=== PATIENT | male | born 1965 | race African-American/Black ===

== ENCOUNTER 2018-01-11 12:56 | Inpatient (IN) | payer SELFPAY ==
[~2018-01-11] VITALS: Ht 180.3 cm; Wt 92.5 kg
[2018-01-11 13:19] VITALS: BP 113/93
[2018-01-11 13:39] LABS: BASOPHILS % (AUTO) 1.2 % (0.0-2.0); EOSINOPHILS % (AUTO) 1.3 % (0.0-3.0); HEMATOCRIT 48.4 % (42.0-52.0); HEMOGLOBIN 16.1 G/DL (14.2-18.0); LYMPHOCYTES % (AUTO) 45.3 % (20.0-45.0); MEAN CORPUSCULAR VOLUME 93 FL (80-99); MONOCYTES % (AUTO) 8.1 % (1.0-10.0); NEUTROPHILS % (AUTO) 44.1 % (45.0-75.0); PLATELET COUNT 204 K/UL (150-450); RED BLOOD COUNT 5.19 M/UL (4.70-6.10); RED CELL DISTRIBUTION WIDTH 11.3 % (11.6-14.8); WHITE BLOOD COUNT 5.8 K/UL (4.8-10.8)
[2018-01-11 13:54] LABS: ANION GAP 8 mmol/L (5-15); BLOOD UREA NITROGEN 14 mg/dL (7-18); CALCIUM 9.1 MG/DL (8.5-10.1); CARBON DIOXIDE 29 MMOL/L (21-32); CHLORIDE 103 MMOL/L (98-107); CREATININE 1.2 MG/DL (0.55-1.30); POTASSIUM 3.7 MMOL/L (3.5-5.1); SODIUM 140 MMOL/L (136-145)
[2018-01-11 14:08] LABS: ALANINE AMINOTRANSFERASE 21 U/L (12-78); ALBUMIN 3.9 G/DL (3.4-5.0); ALKALINE PHOSPHATASE 67 U/L (46-116); ASPARTATE AMINO TRANSFERASE 17 U/L (15-37); BILIRUBIN,TOTAL 0.4 MG/DL (0.2-1.0); CKMB 0.8 NG/ML (0.0-3.6); CREATINE KINASE 146 U/L (26-308)
[2018-01-11] MEDS ORDERED: Isovue-370 150ml vial INJ PRN (14:30)
--- NOTE | 2018-01-11 15:18 | Emergency Room Report ---
History of Present Illness General Chief Complaint: Chest Pain Source: Patient (Rosalva Ren DO) Present Illness HPI This patient states that he developed chest pain at 5:30 AM this morning. He states the pain was sudden in onset and worse with deep inspiration. He denies trauma. He denies nausea or vomiting. He denies fever or chills. He denies recent illness. He has no other complaints. (Rosalva Ren DO) Allergies: Coded Allergies: No Known Allergies (Unverified , 11/30/12) Patient History Past Medical History: none Social History: Denies: smoking, alcohol use, drug use Reviewed Nursing Documentation: PMH: Agreed; PSxH: Agreed (Rosalva Ren DO) Nursing Documentation-PMH Past Medical History: No Stated History (Rosalva Ren DO) Review of Systems All Other Systems: negative except mentioned in HPI (Rosalva Ren DO) Physical Exam Vital Signs Date Time Temp Pulse Resp B/P (MAP) Pulse Ox O2 Delivery O2 Flow Rate FiO2 01/11/18 13:09 98.7 63 20 153/100 97 Room Air 98.8 Sp02 EP Interpretation: reviewed, normal General Appearance: no apparent distress, alert, GCS 15, non-toxic Head: normocephalic, atraumatic Eyes: bilateral eye normal inspection, bilateral eye PERRL ENT: hearing grossly normal, normal pharynx, no angioedema, normal voice Neck: full range of motion, supple/symm/no masses Respiratory: lungs clear, normal breath sounds, no respiratory distress, no retraction, no accessory muscle use, speaking full sentences, other - Chest wall ttp on palpation. Cardiovascular #1: regular rate, rhythm, no edema Gastrointestinal: normal bowel sounds, non tender, soft, non-distended, no guarding, no rebound Rectal: deferred Musculoskeletal: back normal, gait/station normal, normal range of motion, non- tender, calf tenderness Neurologic: alert, oriented x3, responsive, motor strength/tone normal, sensory intact, speech normal Psychiatric: judgement/insight normal, memory normal, mood/affect normal, no suicidal/homicidal ideation Skin: normal color, no rash, warm/dry, well hydrated (Rosalva Ren DO) Medical Decision Making Diagnostic Impression: Primary Impression: Chest pain Additional Impression: ACS (acute coronary syndrome) ER Course This patient presented with chest pain and it was pleuritic in nature. Initial workup to include EKG, chest x-ray and cardiac enzymes were unremarkable. The patient has had stuttering chest pain throughout the day that is worse with deep inspiration. I felt that I should rule out PE in this patient. The patient is pending a CTA of the chest at this time. Anticipate admission for cardiology evaluation. CT to be followed up by Dr. Em. Final disposition per Dr. Em. Laboratory Tests Test 01/11/18 13:08 01/11/18 13:26 Urine Opiates Screen Negative (NEGATIVE) Urine Barbiturates Screen Negative (NEGATIVE) Phencyclidine (PCP) Screen Negative (NEGATIVE) Urine Amphetamines Screen Negative (NEGATIVE) Urine Benzodiazepines Screen Negative (NEGATIVE) Urine Cocaine Screen Negative (NEGATIVE) Urine Marijuana (THC) Screen Negative (NEGATIVE) White Blood Count 5.8 K/UL (4.8-10.8) Red Blood Count 5.19 M/UL (4.70-6.10) Hemoglobin 16.1 G/DL (14.2-18.0) Hematocrit 48.4 % (42.0-52.0) Mean Corpuscular Volume 93 FL (80-99) Mean Corpuscular Hemoglobin 31.0 PG (27.0-31.0) Mean Corpuscular Hemoglobin Concent 33.3 G/DL (32.0-36.0) Red Cell Distribution Width 11.3 % (11.6-14.8) L Platelet Count 204 K/UL (150-450) Mean Platelet Volume 7.7 FL (6.5-10.1) Neutrophils (%) (Auto) 44.1 % (45.0-75.0) L Lymphocytes (%) (Auto) 45.3 % (20.0-45.0) H Monocytes (%) (Auto) 8.1 % (1.0-10.0) Eosinophils (%) (Auto) 1.3 % (0.0-3.0) Basophils (%) (Auto) 1.2 % (0.0-2.0) Sodium Level 140 MMOL/L (136-145) Potassium Level 3.7 MMOL/L (3.5-5.1) Chloride Level 103 MMOL/L (98-107) Carbon Dioxide Level 29 MMOL/L (21-32) Anion Gap 8 mmol/L (5-15) Blood Urea Nitrogen 14 mg/dL (7-18) Creatinine 1.2 MG/DL (0.55-1.30) Estimate Glomerular Filtration Rate > 60 mL/min (>60) Glucose Level 130 MG/DL (74-106) H Calcium Level 9.1 MG/DL (8.5-10.1) Total Bilirubin 0.4 MG/DL (0.2-1.0) Aspartate Amino Transferase (AST) 17 U/L (15-37) Alanine Aminotransferase (ALT) 21 U/L (12-78) Alkaline Phosphatase 67 U/L (46-116) Total Creatine Kinase 146 U/L (26-308) Creatine Kinase MB 0.8 NG/ML (0.0-3.6) Creatine Kinase MB Relative Index 0.5 Troponin I 0.011 ng/mL (0.000-0.056) Total Protein 7.8 G/DL (6.4-8.2) Albumin 3.9 G/DL (3.4-5.0) Globulin 3.9 g/dL Albumin/Globulin Ratio 1.0 (1.0-2.7) (Rosalva Ren DO) ER Course Patient presented to the emergency department today complaining of chest pain. Differential diagnoses include acute coronary syndrome, pulmonary embolism, pneumothorax, chest wall pain, pleurisy, pericarditis, acute anxiety reaction just to name a few. Given the severity of the patient's presentation I felt this is a highly complex patient. This patient required extensive workup. CBC , chemistry, EKG, chest x-ray, cardiac enzymes, liver profile were all obtained. 12-lead EKG performed for nontraumatic chest pain. PQRS documentation: EKG was performed. Please refer to below for interpretation. Patient's EKG was nonspecific but had inverted T waves. Patient's cardiac enzymes are negative. Patient was initially seen by Dr. Ren and signed out to me for final disposition. Given patient's risk factors felt the patient require admission. Case was discussed with Dr. Timo Peters for admission. Labs Test 01/11/18 13:08 01/11/18 13:26 Urine Opiates Screen Negative (NEGATIVE) Urine Barbiturates Screen Negative (NEGATIVE) Phencyclidine (PCP) Screen Negative (NEGATIVE) Urine Amphetamines Screen Negative (NEGATIVE) Urine Benzodiazepines Screen Negative (NEGATIVE) Urine Cocaine Screen Negative (NEGATIVE) Urine Marijuana (THC) Screen Negative (NEGATIVE) White Blood Count 5.8 K/UL (4.8-10.8) Red Blood Count 5.19 M/UL (4.70-6.10) Hemoglobin 16.1 G/DL (14.2-18.0) Hematocrit 48.4 % (42.0-52.0) Mean Corpuscular Volume 93 FL (80-99) Mean Corpuscular Hemoglobin 31.0 PG (27.0-31.0) Mean Corpuscular Hemoglobin Concent 33.3 G/DL (32.0-36.0) Red Cell Distribution Width 11.3 % (11.6-14.8) Platelet Count 204 K/UL (150-450) Mean Platelet Volume 7.7 FL (6.5-10.1) Neutrophils (%) (Auto) 44.1 % (45.0-75.0) Lymphocytes (%) (Auto) 45.3 % (20.0-45.0) Monocytes (%) (Auto) 8.1 % (1.0-10.0) Eosinophils (%) (Auto) 1.3 % (0.0-3.0) Basophils (%) (Auto) 1.2 % (0.0-2.0) Sodium Level 140 MMOL/L (136-145) Potassium Level 3.7 MMOL/L (3.5-5.1) Chloride Level 103 MMOL/L (98-107) Carbon Dioxide Level 29 MMOL/L (21-32) Anion Gap 8 mmol/L (5-15) Blood Urea Nitrogen 14 mg/dL (7-18) Creatinine 1.2 MG/DL (0.55-1.30) Estimat Glomerular Filtration Rate > 60 mL/min (>60) Glucose Level 130 MG/DL (74-106) Calcium Level 9.1 MG/DL (8.5-10.1) Total Bilirubin 0.4 MG/DL (0.2-1.0) Aspartate Amino Transf (AST/SGOT) 17 U/L (15-37) Alanine Aminotransferase (ALT/SGPT) 21 U/L (12-78) Alkaline Phosphatase 67 U/L (46-116) Total Creatine Kinase 146 U/L (26-308) Creatine Kinase MB 0.8 NG/ML (0.0-3.6) Creatine Kinase MB Relative Index 0.5 Troponin I 0.011 ng/mL (0.000-0.056) Total Protein 7.8 G/DL (6.4-8.2) Albumin 3.9 G/DL (3.4-5.0) Globulin 3.9 g/dL Albumin/Globulin Ratio 1.0 (1.0-2.7) (Anival Em MD) EKG Diagnostic Results Rate: normal Rhythm: NSR ST Segments: other - NSST ([facility]) Rate: normal Rhythm: NSR ST Segments: other - Inverted T waves inferior laterally (Anival Em MD) Rhythm Strip Diag. Results EP Interpretation: yes Rate: 50's Rhythm: other - [facility]ritz [facility] EP Interpretation: yes Rate: 80s Rhythm: NSR, no PVC's, no ectopy (Anival Em MD) Chest X-Ray Diagnostic Results Chest X-Ray Diagnostic Results : Chest X-Ray Ordered: Yes # of Views/Limited/Complete: 1 View Indication: Chest Pain Interpretation: no consolidation, no effusion, no pneumothorax, no acute cardiopulmonary disease Impression: No acute disease Electronically Signed by: Jennifer ([facility]) CT/MRI/US Diagnostic Results CT/MRI/US Diagnostic Results : Imaging Test Ordered: [facility] chest Impression [facility]ending [facility] CT[facility]/US Diagnostic Results : Imaging Test Ordered: CT chest: Negative per radiology (Anival Em MD) Last Vital Signs Date Time Temp Pulse Resp B/P (MAP) Pulse Ox O2 Delivery O2 Flow Rate FiO2 01/11/18 13:22 65 19 Room Air 01/11/18 13:19 98.2 113/93 100 98.2 ([facility]) Disposition: ADMITTED INPATIENT Condition: Serious Referrals: NOT CHOSEN IPA/,REFERRING [facility] 11, [facility] 15:18 Anival Em MD Jan 11, 2018 16:09
--- NOTE | 2018-01-11 16:02 | Diagnostic Imaging Report ---
ndication: Left-sided chest pain Technique: IV administration nonionic contrast. Spiral acquisitions obtained from the lung bases to the lung apices. Multiplanar and 3-D reconstructions were generated. Total dose length product 865.65 mGycm. CTDIvol(s) 21.41 mGy. Dose reduction achieved using automated exposure control Comparison: none Findings: There is good quality opacification of the pulmonary arteries. No intraluminal filling defects or other findings to suggest acute pulmonary embolus are demonstrated. Normal caliber pulmonary arteries. No evidence of right ventricular dilatation. The heart is borderline enlarged. The ascending thoracic aorta is mildly ectatic, measuring 3.8 cm diameter, but not frankly aneurysmal. Normal branching anatomy and normal caliber of the great neck vessels. The lungs demonstrate peripheral mild centrilobular interstitial septal thickening bilaterally. No focal airspace consolidation. No masses or nodules. No effusions. No pericardial effusion. No mediastinal or hilar mass or adenopathy. The included portions of the thyroid appear unremarkable. No axillary or chest wall mass or adenopathy demonstrated. The included upper abdominal viscera demonstrate a small cyst in the upper pole of the left kidney. There is a superior endplate compression fracture deformity of the T11 vertebral body. There are suggestive slight endplate superior depressions of the T3, T4, and T8 vertebral bodies. Impression: Negative for evidence of acute pulmonary embolus or other acute thoracic pathology Peripheral centrilobular mild interstitial septal thickening, nonspecific finding with a broad differential, likely chronic T11 superior endplate vertebral body compression fracture deformity. Questionable slight superior endplate compression fractures of T3, T4, T8. All age indeterminate. Consider MRI for better examination if clinically relevant Incidental finding small left upper pole renal cyst The CT scanner at [facility] is accredited by the [employer] and the scans are performed using protocols designed to limit radiation exposure to as low as reasonably achievable to attain images of sufficient resolution adequate for diagnostic evaluation.
--- NOTE | 2018-01-11 16:49 | Diagnostic Imaging Report ---
Indication: Chest pain Technique: One view of the chest Comparison: 11/30/2012 Findings: Suboptimal inspiration. The heart is enlarged. The aorta is tortuous. Upper mediastinum is unremarkable Impression: No acute process
[2018-01-11 16:50] VITALS: BP 115/68
[2018-01-11] MEDS ORDERED: NKM (17:02)
[2018-01-11 20:00] VITALS: BP 156/100
[2018-01-12] VITALS: BP 140/87
[2018-01-12 04:00] VITALS: BP 142/85
[2018-01-12 05:50] LABS: CHOLESTEROL 168 MG/DL (< 200); HDL CHOLESTEROL 69 MG/DL (40-60); TRIGLYCERIDES 67 MG/DL (30-150)
[2018-01-12 08:00] VITALS: BP 140/98
--- NOTE | 2018-01-12 08:02 | Cardiology Progress Note ---
Assessment/Plan Assessment/Plan The patient is seen and examined, full consult report will be dictated shortly. Objective Last 24 Hour Vital Signs Date Time Temp Pulse Resp B/P (MAP) Pulse Ox O2 Delivery O2 Flow Rate FiO2 01/12/18 04:00 56 01/12/18 04:00 98.1 56 17 142/85 (104) 96 98.1 01/12/18 00:00 54 01/12/18 00:00 98.1 54 17 140/87 (104) 96 98.1 01/11/18 21:00 Room Air 01/11/18 20:00 59 01/11/18 20:00 98.3 65 16 156/100 (118) 96 98.3 01/11/18 18:03 Room Air 01/11/18 17:20 98.2 63 19 115/68 100 Room Air 98.2 01/11/18 16:50 98.2 63 19 115/68 100 Room Air 98.2 01/11/18 13:22 65 19 Room Air 01/11/18 13:19 98.2 63 17 113/93 100 Room Air 98.2 01/11/18 13:09 98.7 63 20 153/100 97 Room Air 98.8 Intake and Output 01/11/18 01/12/18 19:00 07:00 Intake Total 360 ml Balance 360 ml Intake Oral 360 ml # Voids 1 1 # Bowel Movements 1 Laboratory Tests Test 01/11/18 13:08 01/11/18 13:26 01/11/18 23:10 01/12/18 04:00 Urine Opiates Screen Negative (NEGATIVE) Urine Barbiturates Screen Negative (NEGATIVE) Phencyclidine (PCP) Screen Negative (NEGATIVE) Urine Amphetamines Screen Negative (NEGATIVE) Urine Benzodiazepines Screen Negative (NEGATIVE) Urine Cocaine Screen Negative (NEGATIVE) Urine Marijuana (THC) Screen Negative (NEGATIVE) White Blood Count 5.8 K/UL (4.8-10.8) Red Blood Count 5.19 M/UL (4.70-6.10) Hemoglobin 16.1 G/DL (14.2-18.0) Hematocrit 48.4 % (42.0-52.0) Mean Corpuscular Volume 93 FL (80-99) Mean Corpuscular Hemoglobin 31.0 PG (27.0-31.0) Mean Corpuscular Hemoglobin Concent 33.3 G/DL (32.0-36.0) Red Cell Distribution Width 11.3 % (11.6-14.8) L Platelet Count 204 K/UL (150-450) Mean Platelet Volume 7.7 FL (6.5-10.1) Neutrophils (%) (Auto) 44.1 % (45.0-75.0) L Lymphocytes (%) (Auto) 45.3 % (20.0-45.0) H Monocytes (%) (Auto) 8.1 % (1.0-10.0) Eosinophils (%) (Auto) 1.3 % (0.0-3.0) Basophils (%) (Auto) 1.2 % (0.0-2.0) Sodium Level 140 MMOL/L (136-145) Potassium Level 3.7 MMOL/L (3.5-5.1) Chloride Level 103 MMOL/L (98-107) Carbon Dioxide Level 29 MMOL/L (21-32) Anion Gap 8 mmol/L (5-15) Blood Urea Nitrogen 14 mg/dL (7-18) Creatinine 1.2 MG/DL (0.55-1.30) Estimat Glomerular Filtration Rate > 60 mL/min (>60) Glucose Level 130 MG/DL (74-106) H Calcium Level 9.1 MG/DL (8.5-10.1) Total Bilirubin 0.4 MG/DL (0.2-1.0) Aspartate Amino Transf (AST/SGOT) 17 U/L (15-37) Alanine Aminotransferase (ALT/SGPT) 21 U/L (12-78) Alkaline Phosphatase 67 U/L (46-116) Total Creatine Kinase 146 U/L (26-308) Creatine Kinase MB 0.8 NG/ML (0.0-3.6) Creatine Kinase MB Relative Index 0.5 Troponin I 0.011 ng/mL (0.000-0.056) 0.002 ng/mL (0.000-0.056) Total Protein 7.8 G/DL (6.4-8.2) Albumin 3.9 G/DL (3.4-5.0) Globulin 3.9 g/dL Albumin/Globulin Ratio 1.0 (1.0-2.7) Triglycerides Level 67 MG/DL (30-150) Cholesterol Level 168 MG/DL (< 200) LDL Cholesterol 89 mg/dL (<100) HDL Cholesterol 69 MG/DL (40-60) H Cholesterol/HDL Ratio 2.4 (3.3-4.4) L Marquise Christian MD Jan 12, 2018 08:02
[2018-01-12] MEDS: Aspirin Baby 81mg ORAL SCH (08:15)
[2018-01-12 12:00] VITALS: BP 136/91
[2018-01-12 16:00] VITALS: BP 138/68
[2018-01-12 20:00] VITALS: BP 157/105
[2018-01-13] VITALS: BP 146/94
[2018-01-13 04:00] VITALS: BP 141/94
[2018-01-13 08:00] VITALS: BP 139/96
[2018-01-13] MEDS: Aspirin Baby 81mg ORAL SCH (08:22)
--- NOTE | 2018-01-13 13:30 | History and Physical Report ---
DATE OF ADMISSION: 01/11/2018 NOTE: Poor Audio/Multiple Blanks HISTORY OF PRESENT ILLNESS: The patient admitted for chest pain, to rule out acute coronary syndrome. The patient states that he has been having chest pain for one day, made worse by deep inspiration and laughing, although, has a history of drug abuse in the past. Denies nausea, vomiting, or diarrhea. No palpitations. No shortness of breath. Denies cough. Denies fever or chills. Denies orthopnea. PAST MEDICAL HISTORY: None. PAST SURGICAL HISTORY: None. MEDICATIONS: None. FAMILY HISTORY: Noncontributory. SOCIAL HISTORY: history of alcohol abuse. Denies history of smoking. Does have a history of drug abuse in the past. REVIEW OF SYSTEMS: HEENT: Denies headaches. PULMONARY: Denies shortness of breath. Denies cough. CARDIOVASCULAR: . Does have chest pain for one day. No radiation. Admitted for further infection deep inspiration. GASTROINTESTINAL: No nausea, vomiting, or diarrhea. Denies heartburn. EXTREMITIES: No pain in the lower extremities. NEUROLOGIC: No change in vision or speech pattern. PHYSICAL EXAMINATION: VITAL SIGNS: Temperature 98.1, pulse is 54, blood pressure . HEENT: PERRLA. NECK: Supple. CHEST: Clear to auscultation. CARDIOVASCULAR: Regular rate and rhythm. GASTROINTESTINAL: Soft, nontender, and nondistended. No organomegaly. EXTREMITIES: No edema. Able to move all extremities. LABORATORY DATA: Troponins negative. EKG, no significant changes. Laboratory barragan, 5.8 WBC, 16.1 hemoglobin, platelets 204. Sodium 140, potassium 3.7, BUN of 14, creatinine 1.2, and glucose of 130. Troponin 0.011. ASSESSMENT/PLAN: Chest pain, rule out acute coronary syndrome. I have asked Dr. Christian and Dr. Majano to see the patient to rule out acute coronary syndrome and also for borderline potassium. Timo Hadley M.D. DR: ELZBIETA/SULMA JOB#: [id number] CC:
--- NOTE | 2018-01-13 17:00 | Consultation ---
DATE OF CONSULTATION: 01/12/2018 CARDIOLOGY CONSULTATION CONSULTING PHYSICIAN: Marquise Christian M.D. REFERRING PHYSICIAN: Timo Hadley M.D. REASON FOR CONSULTATION: Management of chest pain. HISTORY OF PRESENT ILLNESS: The patient is a very unfortunate 52-year-old gentleman, who presented to the hospital on 01/11/2018 after developing chest pain at 5:30 a.m. Chest pain is described as sudden onset, pleuritic, and no alleviating factors. He does not take any medication. He does not have any history of coronary artery disease, congestive heart failure, or cardiac arrhythmia. The pain was not associated with any shortness of breath, nausea, vomiting, or diaphoresis. At the time of arrival to the hospital, blood pressure was 153/100 mmHg and pulse of 63. Acute myocardial infarction was ruled out by two indicative troponin I levels. PAST MEDICAL HISTORY: None. MEDICATION: None. ALLERGIES: No known drug allergies. SOCIAL HISTORY: Denies any tobacco, alcohol, or illicit drug use. FAMILY HISTORY: None. REVIEW OF SYSTEMS: A 12-system review done is essentially negative except what is mentioned in the history of present illness. PHYSICAL EXAMINATION: VITAL SIGNS: Blood pressure 153/100, pulse of 63, respirations 20, and O2 saturation 98% on room air. GENERAL: The patient is a very pleasant 52-year-old gentleman, in no apparent respiratory distress. Alert and orient x4. HEENT: Atraumatic and normocephalic. Anicteric. Pupils are equal, round, and reactive to light and accommodation. Extraocular muscles intact. NECK: JVP less than 5 cm. No carotid bruit. Carotid upstrokes 2+ bilaterally. CVS: Normal S1, S2. Regular rate and rhythm. No murmurs, gallops, or rubs. PMI is at fourth intercostal space at the midclavicular line. LUNGS: Clear to auscultation bilaterally. ABDOMEN: Soft, nontender, and nondistended. No hepatosplenomegaly. Positive bowel sounds. EXTREMITIES: No evidence of edema, clubbing, or cyanosis. LABORATORY FINDINGS: Urine tox screen was negative. Chemistry shows sodium 140, potassium 3.7, chloride 103, bicarbonate 29, BUN of 14, and creatinine 1.2. Glucose 130. Calcium is 9.1. Troponin I x2 negative. LDL is 89, HDL is 69, total cholesterol 168, and triglycerides is 67. CBC shows WBC of 5.8, hemoglobin is 16.1, hematocrit of 48.4, and platelet count is 204,000. Chest x-ray showed no acute cardiopulmonary disease. CTA of chest showed no evidence of pulmonary embolism. ASSESSMENT AND PLAN: The patient is a very unfortunate 52-year-old gentleman, who presented to the hospital with atypical chest pain. No risk factors for coronary artery disease except age and hypertension for which he presented to the hospital and might be new onset. The patient will benefit from a treadmill and stress test to rule out obstructive CAD before the pending discharge. I would like to thank, , for the courtesy of this consultation. Marquise Christian M.D. DR: FRANCISCO J JOB#: [id number] CC:
--- NOTE | 2018-01-14 08:18 | Discharge Summary ---
Discharge Summary Discharge Summary _ DATE OF ADMISSION: 01/11/2018 DATE OF DISCHARGE: 01/13/2018 CONSULTANTS: Dr. Marquise Christian BRIEF HOSPITAL COURSE: Patient is a 52-year-old male, who presented to ED for evaluation of chest pain. Chest pain started early in the morning, pain was sudden in onset and worse with deep inspiration, there was no alleviating factors. He denied any trauma in the chest. Denied any nausea or vomiting. Denied fever or chills. Denied any recent illness. He denied taking any medications and denied any history of coronary artery disease, congestive heart failure or arrhythmia. The pain was not associated with shortness of breath, nausea, vomiting or diaphoresis. On evaluation at ED, vital signs were stable except for high blood pressure 153/ 100, pulse rate 63. Initial troponin was 0.011. EKG was nonspecific but had inverted T waves. Urine toxicology was negative. Chest x-ray done showed no acute disease. Chest CTA was negative for any evidence of acute pulmonary embolus or acute thoracic pathology. He was then admitted for evaluation of acute coronary syndrome. He underwent cardiac evaluation. Cardiac enzymes were monitored. He was given aspirin. Lipid panel showed LDL of 89, Cholesterol 168, HDL 69. He underwent treadmill stress test. Results were negative. Patient was cleared for discharge home. FINAL DIAGNOSES: Atypical chest pain DISPOSITION: Patient was discharged home. DISCHARGE INSTRUCTIONS: Follow up with PCP and bilingual student tutor in a week. I have been assigned to dictate discharge summary on this account, and I was not involved in the patient's management. Violet Beltran NP Jan 14, 2018 08:18
--- NOTE | 2018-01-17 23:39 | Physician Query ---
--------- THIS DOCUMENT IS A PERMANENT PART OF THE MEDICAL RECORD --------- PLEASE COMPLETE THE DOCUMENT BEFORE SIGNING Dear Dr. Alpesh Hadley Date _01/17/2018 Meter Tester Primary/CDS' Duncan _Tim Goff CCS Exercise your independent professional judgment when responding to query. Questions asked do not imply particular answer is desired or expected. We greatly appreciate your clarification on this issue. Clinical Documentation States:Chest pain, rule out acute coronary syndrome. Chest pain started early in the morning, pain was sudden in onset and worse with deep inspiration, there was no alleviating factors. He denied any trauma in the chest.He underwent cardiac evaluation. Cardiac enzymes were monitored. He was given aspirin. Lipid panel showed LDL of 89, Cholesterol 168, HDL 69. He underwent treadmill stress test. Results were negative. Clinical Findings Show: Troponins negative. EKG, no significant changes. Please document the suspected etiology of Chest Pain: a.Type: []Cardiac []Non-cardiac []Unspecified b.Etiology - cardiac [] Aortic dissection []Mitral valve prolapsed [] Acute myocardial infarction []Spasm of coronary arteries [] Coronary Artery Disease []Pericarditis c.Etiology - non-cardiac [] Anxiety []Pleurisy [] Cancer []Pneumonia, type [] Costochondritis []Pneumothorax [] GERD/Esophagitis []Pulmonary embolism [] Unable to determine []Other: Timo Hadley MD Date MTDD
== END 2018-01-13 09:40 | disposition home or self-care (01) | DRG 313 ==
LOC: EMR 13:28 → 2E 15:58 → EDBEDREQ 16:10
DX: R07.89 Other chest pain (principal); I10 Essential (primary) hypertension
CPT/HCPCS: 36415; 71045; 71275; 80053; 80061; 80307; 82550; 82553; 84484; 85025; 93005; 93017; 99285

== ENCOUNTER 2018-12-19 19:26 | Emergency (ER) | payer SELFPAY ==
[~2018-12-19] VITALS: Ht 180.3 cm; Wt 83.9 kg
[~2018-12-19 19:26] MED LIST: NKM
--- NOTE | 2018-12-19 19:46 | NUR ---
ED Nurse Note: Pt c/o 01/19 abdominal pain since this morning, denies N/V/D. ao4. nad. hypertensive 193/84. iv access established. blood collected; sent down to lab.
[2018-12-19] MEDS ORDERED: Morphine Sulfate 4mg/ml Inj (IV USE ONLY) IVP ONE (20:00)
--- NOTE | 2018-12-19 20:04 | NUR ---
ED Nurse Note: urine collected; sent down to lab.
[2018-12-19 20:06] VITALS: BP 191/112
[2018-12-19 20:24] LABS: BASOPHILS % (AUTO) 0.8 % (0.0-2.0); EOSINOPHILS % (AUTO) 0.4 % (0.0-3.0); HEMATOCRIT 44.9 % (42.0-52.0); LYMPHOCYTES % (AUTO) 15.4 % (20.0-45.0); MEAN CORPUSCULAR VOLUME 91 FL (80-99); MONOCYTES % (AUTO) 5.4 % (1.0-10.0); PLATELET COUNT 209 K/UL (150-450); RED BLOOD COUNT 4.93 M/UL (4.70-6.10); WHITE BLOOD COUNT 8.6 K/UL (4.8-10.8)
[2018-12-19 20:25] LABS: ANION GAP 8 mmol/L (5-15); BLOOD UREA NITROGEN 12 mg/dL (7-18); CALCIUM 9.3 MG/DL (8.5-10.1); CARBON DIOXIDE 30 MMOL/L (21-32); CHLORIDE 101 MMOL/L (98-107); CREATININE 1.2 MG/DL (0.55-1.30); POTASSIUM 4.1 MMOL/L (3.5-5.1); SODIUM 139 MMOL/L (136-145)
[2018-12-19 20:27] LABS: ALANINE AMINOTRANSFERASE 16 U/L (12-78); ALBUMIN 4.2 G/DL (3.4-5.0); ALKALINE PHOSPHATASE 68 U/L (46-116); ASPARTATE AMINO TRANSFERASE 20 U/L (15-37); BILIRUBIN,TOTAL 0.5 MG/DL (0.2-1.0)
[2018-12-19] MEDS ORDERED: Isovue-300 100ml vial INJ PRN (20:30)
[2018-12-19 20:41] LABS: APPEARANCE,URINE CLEAR; BILIRUBIN, URINE NEGATIVE (NEGATIVE); COLOR,URINE PALE YELLOW; GLUCOSE, URINE (UA) NEGATIVE (NEGATIVE); KETONES,URINE NEGATIVE (NEGATIVE); LEUKOCYTE ESTERASE ,URINE NEGATIVE (NEGATIVE); NITRITE,URINE NEGATIVE (NEGATIVE); PH,URINE 7 (4.5-8.0); PROTEIN,URINE NEGATIVE (NEGATIVE); UROBILINOGEN,URINE NORMAL MG/DL (0.0-1.0)
[2018-12-19] MEDS ORDERED: COLACE100 MG ORAL (21:28)
[2018-12-19] MEDS ORDERED: PRILOSEC OTC20 MG ORAL (21:28)
--- NOTE | 2018-12-19 21:46 | NUR ---
ER DISCHARGE NOTE: Patient is cleared to be discharged per ERMD, pt is aox4, on room air, with stable vital signs. accompanied by family member. pt was given dc and prescription instructions, pt was able to verbalize understanding, pt id band and iv site removed without complications. pt is able to ambulate with steady gait. pt took all belongings.
--- NOTE | 2018-12-20 00:13 | Emergency Room Report ---
History of Present Illness General Chief Complaint: Abdominal Pain Source: Patient Present Illness Allergies: Coded Allergies: No Known Allergies (Unverified , 11/30/12) Nursing Documentation-[facility] Past Medical History: No Stated History Hx Cardiac Problems: No Hx Cancer: No Hx Gastrointestinal Problems: No Hx Neurological Problems: No Physical Exam Vital Signs Date Time Temp Pulse Resp B/P (MAP) Pulse Ox O2 Delivery O2 Flow Rate FiO2 12/19/18 19:28 97.9 56 20 191/112 (138) 99 Room Air Medical Decision Making Diagnostic Impression: Primary Impression: Nonspecific abdominal pain Laboratory Tests Test 12/19/18 19:45 White Blood Count 8.6 K/UL (4.8-10.8) Red Blood Count 4.93 M/UL (4.70-6.10) Hemoglobin 16.0 G/DL (14.2-18.0) Hematocrit 44.9 % (42.0-52.0) Mean Corpuscular Volume 91 FL (80-99) Mean Corpuscular Hemoglobin 32.5 PG (27.0-31.0) H Mean Corpuscular Hemoglobin Concent 35.8 G/DL (32.0-36.0) Red Cell Distribution Width 12.0 % (11.6-14.8) Platelet Count 209 K/UL (150-450) Mean Platelet Volume 6.4 FL (6.5-10.1) L Neutrophils (%) (Auto) 78.0 % (45.0-75.0) H Lymphocytes (%) (Auto) 15.4 % (20.0-45.0) L Monocytes (%) (Auto) 5.4 % (1.0-10.0) Eosinophils (%) (Auto) 0.4 % (0.0-3.0) Basophils (%) (Auto) 0.8 % (0.0-2.0) Urine Color Pale yellow Urine Appearance Clear Urine pH 7 (4.5-8.0) Urine Specific [place] 1.005 (1.005-1.035) Urine Protein Negative (NEGATIVE) Urine Glucose (UA) Negative (NEGATIVE) Urine Ketones Negative (NEGATIVE) Urine Blood Negative (NEGATIVE) Urine Nitrite Negative (NEGATIVE) Urine Bilirubin Negative (NEGATIVE) Urine Urobilinogen Normal MG/DL (0.0-1.0) Urine Leukocyte Esterase Negative (NEGATIVE) Sodium Level 139 MMOL/L (136-145) Potassium Level 4.1 MMOL/L (3.5-5.1) Chloride Level 101 MMOL/L (98-107) Carbon Dioxide Level 30 MMOL/L (21-32) Anion Gap 8 mmol/L (5-15) Blood Urea Nitrogen 12 mg/dL (7-18) Creatinine 1.2 MG/DL (0.55-1.30) Estimate Glomerular Filtration Rate > 60 mL/min (>60) Glucose Level 118 MG/DL (74-106) H Calcium Level 9.3 MG/DL (8.5-10.1) Total Bilirubin 0.5 MG/DL (0.2-1.0) Aspartate Amino Transferase (AST) 20 U/L (15-37) Alanine Aminotransferase (ALT) 16 U/L (12-78) Alkaline Phosphatase 68 U/L (46-116) Total Protein 8.4 G/DL (6.4-8.2) H Albumin 4.2 G/DL (3.4-5.0) Globulin 4.2 g/dL Albumin/Globulin Ratio 1.0 (1.0-2.7) Lipase 91 U/L (73-393) Last Vital Signs Date Time Temp Pulse Resp B/P (MAP) Pulse Ox O2 Delivery O2 Flow Rate FiO2 12/19/18 21:45 97.9 68 20 135/99 99 Room Air Status: improved Disposition: HOME, SELF-CARE Condition: Improved Scripts Docusate Sodium* (COLACE*) 100 Mg Capsule 100 MG ORAL TWICE A DAY, #30 CAP Prov: Ahmet Welsh MD 12/19/18 Omeprazole Magnesium (PRILOSEC OTC) 20 Mg Tablet. 20 MG ORAL DAILY, #30 TAB Prov: Ahmet Welsh MD 12/19/18 Referrals: NOT CHOSEN IPA/,REFERRING (PCP) Patient Instructions: Abdominal Pain, Adult Additional Instructions: Follow up with your doctor for recheck. Return if worse. Ahmet Welsh MD Dec 20, 2018 00:13
--- NOTE | 2018-12-20 09:20 | Diagnostic Imaging Report ---
Clinical Indication: Abdominal pain since this morning Technique: No oral contrast utilized, per emergency room physician request IV administration nonionic contrast. Venous phase spiral acquisition obtained through the abdomen and pelvis. Multiplanar reconstructions were generated. Total dose length product 789.73 mGycm. CTDIvol(s) 14.12 mGy. Dose reduction achieved using automated exposure control Comparison: none Findings: The appendix is upper limits of normal in caliber, without definite periappendiceal inflammatory change. No evidence of diverticulosis or diverticulitis. No small bowel distention. Somewhat prominent fluid-filled small bowel loops are seen in the left upper quadrant and left lower quadrant. No transition point. No free or loculated intraperitoneal gas or fluid is evident. Distal esophagus, stomach, duodenum are unremarkable. There is a small fat-containing left inguinal hernia The liver, gallbladder, bile ducts, pancreas, spleen, adrenals are unremarkable. Both kidneys demonstrate some lobulations which may represent cortical scarring. The left kidney demonstrates a subcentimeter upper pole lesion which is too small to characterize. There is mild ectasia of the left ureter, but no obstructing calculus demonstrated. No retroperitoneal or mesenteric mass or adenopathy. No pelvic mass or adenopathy. There is some dependent atelectatic changes at both lung bases. The bones are unremarkable. Impression: No definite acute abnormality Small fat-containing left inguinal hernia Incidental findings as noted This agrees with the preliminary interpretation provided overnight by Dr. Esposito The CT scanner at [facility] is accredited by the [employer] and the scans are performed using protocols designed to limit radiation exposure to as low as reasonably achievable to attain images of sufficient resolution adequate for diagnostic evaluation.
== END 2018-12-19 21:45 | disposition home or self-care (01) ==
LOC: EMR 20:00
DX: R10.9 Unspecified abdominal pain (principal)
CPT/HCPCS: 36415; 74177; 80053; 81003; 83690; 85025; 96374; 96375; 99284; J2270; J2405; Q9967; S0028